=== PATIENT | female | born 1975 | race Caucasian/White ===

== ENCOUNTER 2020-11-10 16:50 | Emergency (ER) | payer BC, SELFPAY ==
[2020-11-10 16:56] VITALS: BP 129/81; PULSE 95; RESP 18; TEMP 36.5; O2SAT 100
--- NOTE | 2020-11-10 17:00 | RT.EKG_ITS ---
APPROVED REPORT Exam: Resting ECG Patient Location: E HR:90 bpm ECG Measurements Heart Rate 90 AXIS ID 148 P 51 QRSd 78 QRS 81 QT 362 T 18 QTc 444 Conclusion Sinus rhythm...normal P axis, V-rate 60- 99
--- NOTE | 2020-11-10 17:07 | ED.GENADUL_ITS ---
Discharge Plan Disposition Patient Disposition: HOME Condition: Stable Discharge Details Clinical Impression: Changes in vision, Chest pain, Nausea Primary Care Provider: None,None ED Provider: Raúl Hood Home Meds and New Rx's Prescriptions: Continued methylphenidate HCl [Concerta] 54 mg Tablet Extended Release 24hr 54 mg PO QAM RF: 0 cholecalciferol (vitamin D3) [Vitamin D3] 25 mcg (1,000 unit) Tablet 1,000 mcg PO DAILY RF: 0 Discharge Instructions Instructions: Transient Ischemic Attack (ED), Chest Pain (ED) Additional Instructions: Your blood work, cat scan and ekg's did not show any concerning findings I suspect based on your symptoms you had a transient ischemic attack follow up with your primary care provider as soon as possible take 81mg aspirin daily if you feel more ill, have worsening pain, weakness, speech or walking problems return to the emergency department Medical Decision Making 45 yo female who denies any significant chronic medical problems comes in after she was at home on the computer working remotely when she suddenly started to have nausea. She then noticed her vision seemed wavy for a few moments, denies loss of consciousness. She also developed left arm and chest pain that resolved aftera few minutes. She denies headaches, neck pain, dyspnea, fevers, abdominal pain. She is a remote smoker, denies any drg use and drinks occasionally. She has a clear speech, eomi and on exam her nih is 0 so doubt cva though her symptoms with the vision changes could be from a TIA. She denies any vision symptoms now and denies any chest pain. No headaches so doubt entities such as intracranial hemorrhage, legal word processor infection, cavernous sinus thrombosis and cerebral venous thrombosis. Will evaluate for anemia, nstemi and electrolyte abnormality and obtain ct head. Low probability based on symptoms and exam for dissection or PE, will send d dimer. labs unremarkable, awaiting ct. She is now asymptomatic after having zofran and has no complaints and still has NIH of 0. Will continue to monitor pt's repeat troponin and head ct unremarkable. She remains well ambulating with normal gait, nih of 0 and still no chest pain. Her symptoms could be from dehydration, vasovagal or possible TIA. Discussed this with the patient and given her low risk without any unilateral symptoms she is comfortable with outpatient workup which I feel is reasonable. SHe understands to contact her pcp for follow up and will also send her home on an outpatient monitoring and evaluation advisor. Usual and customary return precautions given Differential Diagnosis Differential Diagnosis: nstemi, tia, anemia Imaging Data Radiologic Study: Attestation: I personally reviewed and interpreted this imaging study as follows: Imaging: CT Scan Radiologist's impression: IMPRESSION: No acute intracranial abnormality. If there is further clinical concern for [place] infarct, MRI may be considered. Lab Data Lab results reviewed: Yes I reviewed the patient's lab results. ECG Data Attestation: I personally reviewed and interpreted this ECG (s) as follows: Prior ECG tracings: not available for review Interpretation: sinus rhythm, rate of 90, pr 148, qtc 362, no acute st t wave ischemic findings 2nd ekg shows sinus rhythm, rate of 72, pr 165, qtc 425 HPI General Mode of arrival: ambulatory . Date/Time Provider Initiated Documentation: 11/10/20 17:00 . Limitations to Documentation: no limitations . Information obtained by: patient . History of Present Illness 45 year old F presents to the emergency department with the chief complaint of nausea, described as moderate, Patient started experiencing this hour(s) (4) and it has been constant. No exacerbating factors reported . Patient notes chest pain. Patient did receive the following treatments prior to arrival, none Related Data Home Medications Medication Instructions Recorded Confirmed cholecalciferol (vitamin D3) 1,000 mcg PO DAILY 11/10/20 11/10/20 [Vitamin D3] methylphenidate HCl [Concerta] 54 mg PO QAM 11/10/20 11/10/20 Allergies Allergy/AdvReac Type Severity Reaction Status Date / Time No Known Allergies Allergy Unverified 11/10/20 17:02 General Stated Complaint: Chest Pain ALAN: 3 Review of Systems All systems reviewed & are unremarkable except as noted in HPI and below Constitutional Constitutional: Denies fever(s) and Denies weakness Cardiovascular Cardiovascular: Denies dyspnea Respiratory Respiratory: Denies cough and Denies dyspnea Gastrointestinal Gastrointestinal: Denies abdominal pain, Denies nausea and Denies vomiting Musculoskeletal Musculoskeletal: Denies joint swelling Neurologic Neurologic: Denies weakness Psychiatric Psychiatric: Denies depression PFSH Social History Smoking/Tobacco Use Status: Former Tobacco Use Smoking risk assessment performed?: Yes Alcohol Intake: current Alcohol Intake frequency: a few times a week Alcohol type: wine Drug use: Never Substance use type: does not use Do you feel safe at home: Yes Do you feel safe in your relationship?: Yes Exam Const General: no acute distress Orientation: alert HENMT Head: normal to inspection Ears: external ears normal General nose exam: external nose normal Mouth: moist mucous membranes Eyes General: appearance normal, both eyes and all related structures Neck Neck: normal visual inspection Resp Effort & Inspection: normal respiratory effort and able to speak in complete sentences Cardio Rate: regular rate GI Palpation: soft and nontender Skin General skin exam: no rashes or lesions noted Neuro General: patient alert and patient oriented x3 Extrem General: normal to inspection Psych Mental Status: mental status grossly normal Course Vital Signs Vital signs: Vital Signs Temperature 36.5 C 11/10/20 16:56 Pulse 95 H 11/10/20 16:56 Respiratory Rate 18 11/10/20 16:56 Blood Pressure 129/81 11/10/20 16:56 Pulse Oximetry 100 11/10/20 16:56 Temperature 36.5 C 11/10/20 16:56 Temperature Source Temporal Artery Scan 11/10/20 16:56 Pulse 95 H 11/10/20 16:56 Respiratory Rate 18 11/10/20 16:56 Respiratory Effort Non-Labored 11/10/20 17:04 Blood Pressure 129/81 11/10/20 16:56 Blood Pressure Position Sitting 11/10/20 16:56 Pulse Oximetry 100 11/10/20 16:56 Oxygen Delivery Method Room Air 11/10/20 16:56 Oxygen Flow Rate 0 11/10/20 16:56
--- NOTE | 2020-11-10 17:15 | DI.CT_ITS ---
EXAM: CT HEAD WO CLINICAL HISTORY: tia. TECHNIQUE: Imaging Protocol: Axial computed tomography images with coronal and sagittal reformatted images were created and reviewed COMPARISON: No exams were available for comparison FINDINGS: The ventricular system is normal in appearance. No evidence of acute intracranial hemorrhage, mass effect, or midline shift. The orbital structures are unremarkable. The temporal bone structures appear intact. Calvarium: Normal. Visualized Paranasal sinuses/Mastoids: Clear. IMPRESSION: Normal cranial CT. RADIATION DOSE DELIVERED: 674.81mGy.cm Total DLP 674.81mGy.cm Total DLP DATA REPOSITORY: All CT scans at this facility are submitted to the National Radiology Data Registry (NRDR) Dose Index Registry (DIR) with the [employer] ([employer]). RADIATION OPTIMIZATION: All CT scans at this facility use at least one of these dose optimization te chniques: automated exposure control; mA and/or kV adjustment per patient size (includes targeted exa ms where dose is matched to clinical indication); or iterative reconstruction.
[2020-11-10 17:33] LABS: Abs Immature Grans 0.03 10^3/uL (0.0-0.06); Absolute Basophil Count 0.04 10^3/uL (0.0-0.2); Absolute Eosinophil Count 0.03 10^3/uL (0.0-0.7); Absolute Lymphocyte Count 2.48 10^3/uL (1.2-3.4); Absolute Monocyte Count 0.55 10^3/uL (0.1-0.8); Absolute Neutrophil Count 4.95 10^3/uL (1.2-6.7); Basophils % 0.5; Eosinophils % 0.4; HCT 43.3 % (36.0-46.0); HGB 14.7 g/dL (11.2-15.7); Immature Grans % 0.4; Lymphocytes % 30.7; MCH 32.4 pg (27.0-33.0); MCHC 33.9 % (32.0-36.0); MCV 95.4 fL (80-95); MPV 11.3 fL (8.0-11.0); Monocytes % 6.8; Neutrophils % 61.2; Nucleated RBC 0 %; Platelet Count 376 10^3/uL (130-400); RBC 4.54 10^6/uL (3.93-5.22); RDW 11.6 % (11.7-14.6); RDW-SD 40.7 fL; WBC 8.08 10^3/uL (4.4-10.8)
[2020-11-10] MEDS: Ondansetron 4 MG/2 ML VIAL IVP (17:34)
[2020-11-10] MEDS: Aspirin 81 MG CHEW 324 MG CH (17:34)
[2020-11-10 17:52] LABS: Bilirubin, Direct 0.1 mg/dL (0.0-0.2); Bilirubin, Total 0.4 mg/dL (0.2-1.0); Lipase 147 U/L (73-393)
[2020-11-10 17:54] LABS: ALT 25 U/L (14-59); AST 13 U/L (15-37); Albumin 4.5 g/dL (3.4-5.0); Alkaline Phosphatase 61 U/L (46-116); Anion Gap 8.4 mmol/L (3-11); BUN 12 mg/dL (7-18); Bilirubin, Total 0.4 mg/dL (0.2-1.0); CO2 29.6 mmol/L (21.0-32.0); CREATININE 0.8 mg/dL (0.55-1.02); Calcium 9.1 mg/dL (8.5-10.1); Chloride 103 mmol/L (98-107); Glucose 87 mg/dL (74-106); Magnesium 1.9 mg/dL (1.8-2.4); Potassium 3.4 mmol/L (3.5-5.1); Sodium 141 mmol/L (136-145); Total Protein 8.1 g/dL (6.4-8.2)
[2020-11-10 17:57] LABS: Troponin I < 0.05 ng/mL (<0.06)
[2020-11-10 17:58] LABS: PTT Activated 22.2 sec (21.0-27.5); Prothrombin Time 10.4 sec (9.3-11.0)
[2020-11-10 18:29] LABS: D-Dimer 238 ng/mlFEU (<500)
[2020-11-10 19:24] VITALS: BP 108/69; PULSE 72; RESP 18; O2SAT 97
--- NOTE | 2020-11-10 19:30 | RT.EKG_ITS ---
APPROVED REPORT Exam: Resting ECG Patient Location: E HR:72 bpm ECG Measurements Heart Rate 72 AXIS VA 165 P 65 QRSd 72 QRS 80 QT 388 T 35 QTc 425 Conclusion Sinus rhythm...normal P axis, V-rate 60- 99
--- NOTE | 2020-11-10 19:43 | DI.VRAD_ITS ---
PROCEDURE INFORMATION: Exam: CT Head Without Contrast Exam date and time: 11/10/2020 7:08 PM Age: 45 years old Clinical indication: Visual disturbance and other: Nausea; Patient HX: Nausea, blurry vision, arm heaviness TECHNIQUE: Imaging protocol: Computed tomography of the head without contrast. Radiation optimization: All CT scans at this facility use at least one of these dose optimization techniques: automated exposure control; mA and/or kV adjustment per patient size (includes targeted exams where dose is matched to clinical indication); or iterative reconstruction. Other technique: STROKE PROTOCOL was implemented. COMPARISON: No relevant prior studies available. FINDINGS: Brain: Normal. No hemorrhage. Unremarkable white matter. No mass effect. Cerebral ventricles: No ventriculomegaly. Bones/joints: Unremarkable. No acute fracture. Paranasal sinuses: Visualized sinuses are unremarkable. No fluid levels. Mastoid air cells: Visualized mastoid air cells are well aerated. Soft tissues: Unremarkable. IMPRESSION: No acute intracranial abnormality. If there is further clinical concern for acute infarct, MRI may be considered. ASSESSMENT: ASPECTS (Teresa Stroke Program Early CT Score) is 10. Dictated and Authenticated by: Melissa Vicente MD. Ordering:CEDRIC Olsen MD
[2020-11-10 20:10] LABS: Troponin I < 0.05 ng/mL (<0.06)
[2020-11-10 20:30] VITALS: BP 108/69; PULSE 72; RESP 18; TEMP 36.5; O2SAT 97
--- NOTE | 2020-11-28 10:59 | W.ZIOMONITOR ---
Date of service: 11/28/20 Time of Service: 10:59 14 [employer] Referring Provider:: Nano Martin Indications:: Transient ischemic attack Note: This is a 14-day awake overnight monitor. Predominant rhythm was sinus with an average heart rate of 83. Minimum was 46, maximum 179 There were very rare ventricular ectopic beats There were very rare atrial premature beats. There was one 5 beat atrial run. There was no atrial fibrillation, no high-grade AV block, no pauses greater than 3 seconds No patient symptoms were reported
== END 2020-11-10 20:32 | disposition home or self-care (01) ==
PROVIDERS: Emergency Provider Emergency Medicine
DX: H53.8 Other visual disturbances (principal); R11.0 Nausea; R07.9 Chest pain, unspecified
CPT/HCPCS: 80053; 83690; 93005; 93246; 96374; 99284; 70450; 82247; 82248; 83735; 84484; 85025; 85379; 85610; 85730; 93010; 99283; J2405

== ENCOUNTER 2020-12-08 03:21 | Outpatient (CLI) | payer BC, SELFPAY ==
[2020-12-08 09:18] LABS: Calculated LDL 127 mg/dL (<100); Cholesterol 226 mg/dL (<200); Glucose 92 mg/dL (74-106); HDL Cholesterol 79 mg/dL (40-60); TSH (W/Ref FT4) 0.85 uIU/mL (0.36-3.74); Triglyceride 100 mg/dL (<150)
== END 2020-12-08 03:22 | disposition home or self-care (01) ==
LOC: LBO 03:21
PROVIDERS: Visit Provider Family Medicine
DX: Z00.00 Encounter for general adult medical examination without abnormal findings (principal); Z13.220 Encounter for screening for lipoid disorders; Z13.1 Encounter for screening for diabetes mellitus; Z13.29 Encounter for screening for other suspected endocrine disorder
CPT/HCPCS: 36415; 80061; 82947; 84443